=== PATIENT | female | born 1975 | race Caucasian/White ===

== ENCOUNTER → 2021-01-12 | Outpatient (CLI) | payer OTHER ==
[~2021-01-12] MED LIST: CLARITIN10 MG PO; CLEOCIN HCL300 MG PO; CYANOCOBAL1000 MCG/1 INJ; DICLOFENAC GEL 1% TOP; ENOXAPARIN40 MG/0.4 SC; FLUTICASONE SPRAY; HYDROCODON-ACE1 EAC2 PO; IBU800 MG PO; LOVENOX30 MG/0.3 SQ; NASAL DECONGEST30 ML; PAXIL40 MG PO; PERCOCET 5/325 T1 EA PO; PLAQUENIL200 MG PO; PROTONIX40 MG PO; ROPINIROLE HCL1 MG PO; VITAMIN C500 M4 PO; VITAMIN D21250 MCG PO
== END ==
LOC: KOH-I 16:37
DX: S99.921A Unspecified injury of right foot, initial encounter (principal); S99.911A Unspecified injury of right ankle, initial encounter; M19.071 Primary osteoarthritis, right ankle and foot; X58.XXXA Exposure to other specified factors, initial encounter
CPT/HCPCS: 73610; 73630

== ENCOUNTER 2021-12-17 18:14 | Emergency (ER) | payer OTHER ==
[2021-12-17 19:37] LABS: HEMOGLOBIN 11.5 gm/dl (12.3-15.3); RED BLOOD COUNT 4.5 M/UL (4.00-5.10); WHITE BLOOD COUNT 8.2 K/UL (4.5-11.0)
[2021-12-17 19:58] LABS: BUN/CREATININE RATIO 16 (0-10)
== END 2021-12-17 21:07 | disposition home or self-care (01) ==
LOC: ER1 18:14
PROVIDERS: Student in an Organized Health Care Education/Training Program
DX: M79.605 Pain in left leg (principal); Z88.0 Allergy status to penicillin
CPT/HCPCS: 73562; 80048; 85025; 85379; 85610; 85730; 96372; 99283; J1650

== ENCOUNTER → 2021-12-18 | Outpatient (CLI) | payer OTHER | LOC: US 10:17 | DX: Z53.9 Procedure and treatment not carried out, unspecified reason (principal) | CPT/HCPCS: 93971 ==

== ENCOUNTER → 2022-01-06 | Outpatient (CLI) | payer OTHER | LOC: KOH-I 15:07 | DX: M79.662 Pain in left lower leg (principal) | CPT/HCPCS: 93971 ==

== ENCOUNTER → 2022-02-28 | Outpatient (CLI) | payer OTHER | LOC: KOH-I 02-22 08:15 | DX: M47.26 Other spondylosis with radiculopathy, lumbar region (principal); M51.16 Intervertebral disc disorders with radiculopathy, lumbar region; M48.061 Spinal stenosis, lumbar region without neurogenic claudication | CPT/HCPCS: 72148 ==

== ENCOUNTER → 2022-06-01 | Outpatient (CLI) | payer OTHER | LOC: ECHO 05-24 10:00 | DX: Z01.810 Encounter for preprocedural cardiovascular examination (principal); R01.1 Cardiac murmur, unspecified; I51.7 Cardiomegaly; I34.0 Nonrheumatic mitral (valve) insufficiency | CPT/HCPCS: ECHO; 93306 ==

== ENCOUNTER → 2022-06-15 | Outpatient (CLI) | payer OTHER | LOC: HEART 5 09:09 | DX: R06.02 Shortness of breath (principal); E66.9 Obesity, unspecified | CPT/HCPCS: 94010; 94729 ==